=== PATIENT | female | born 1960 | race Caucasian/White ===

== ENCOUNTER 2025-06-30 16:35 | Emergency (ER) | payer MEDICARE ==
[2025-06-30 16:59] LABS: #Basophils 0.05 10x3/uL (0.0-0.2); #Eosinophils 0.20 10x3/uL (0.0-0.5); #Monocytes 0.54 10x3/uL (0.0-1.1); #Neutrophils 2.79 10x3/uL (1.5-8.4); %Basophils 0.8 % (0.0-2.0); %Eosinophils 3.1 % (0.0-6.0); %Lymphocytes 44.9 % (18.0-47.0); %Monocytes 8.3 % (0.0-10.0); %Neutrophils 42.7 % (40.0-75.0); Hematocrit 37.3 % (34.9-44.5); Hemoglobin 12.8 g/dL (12.0-15.5); Mean Corpuscular Hemoglobin 29.8 pg (27.0-33.0); Mean Corpuscular Volume 86.9 fL (81.6-98.3); Platelet Count 242 10x3/uL (150-450); Red Blood Cell (RBC) Count 4.29 10x6/uL (3.90-5.03); White Blood Cell (WBC) Count 6.52 10x3/uL (3.5-10.5)
[2025-06-30 17:17] LABS: ALT (SGPT) 15 U/L (Less than 34); AST (SGOT) 21 U/L (11-34); Albumin 4.4 g/dL (3.1-4.5); Alkaline Phosphatase 76 U/L (40-110); Anion Gap 14 mmol/L (10-20); BUN (Urea Nitrogen) 18 mg/dL (9.8-20.1); Bilirubin, Total 0.3 mg/dL (0.3-1.2); Calc. Creatinine Clearance 0 mL/min (70-130); Calcium 9.2 mg/dL (7.8-10.44); Carbon Dioxide 22 mmol/L (23-31); Chloride 107 mmol/L (98-107); Globulin 2.4 g/dL (2.4-3.5); Glucose 88 mg/dL (80-115); Potassium 3.8 mmol/L (3.5-5.1); Sodium 139 mmol/L (136-145)
[2025-06-30 17:23] LABS: Troponin I Less than 0.010 ng/mL (< 0.028)
[2025-06-30 19:35] LABS: Troponin I Less than 0.010 ng/mL (< 0.028)
== END 2025-06-30 20:07 | disposition home or self-care (01) ==
LOC: CSHERS 16:35
DX: R07.89 Other chest pain (principal); R42 Dizziness and giddiness; R29.700 NIHSS score 0
CPT/HCPCS: 36415; 71045; 80053; 84484; 85025; 93005